=== PATIENT | male | born 1955 | race Caucasian/White ===

== ENCOUNTER 2018-01-18 09:28 | Emergency (ER) | payer BC ==
[2018-01-18 09:33] VITALS: RESP 18
[2018-01-18] MEDS ORDERED: IPRATROPIUM-ALBUTEROL 3 ML NEB INHALATION STA ×2 (09:47→10:30)
--- NOTE | 2018-01-18 10:27 | ED ---
General Adult HPI - General Chief complaint: Shortness of Breath Stated complaint: SOB, cough Time Seen by Provider: 01/18/18 09:40 Source: patient, RN notes reviewed Mode of arrival: ambulatory Limitations: no limitations - History of Present Illness Initial comments: Patient is a 62-year-old male presented to the emergency room today with a chief complaint of cough congestion over the last week. He does admit to positive sputum production it's been green in color. Patient does admit to being a daily smoker muscle half pack a day. He states that his son was sick with similar symptoms at home recently and thinks that he has safe. Patient denies any other complaints or symptoms. Patient denies any recent fever, chills , chest pain, back pain, abdominal pain, nausea or vomiting, numbness or tingling, headaches or visual changes, or any other complaints. - Related Data Home Medications Medication Instructions Recorded Confirmed Citalopram Hydrobromide [CeleXA] 20 mg PO DAILY 09/25/14 09/25/14 Dapagliflozin Propanediol [Farxiga] 5 mg PO DAILY 09/25/14 09/25/14 Hydrocodone/Acetaminophen [[place] 1 each PO Q8H PRN 09/25/14 09/25/14 10-325] Lisinopril [Zestril] 5 mg PO DAILY 09/25/14 09/25/14 Metoprolol Tartrate [Lopressor] 12.5 mg PO BID 09/25/14 09/25/14 Pregabalin [Lyrica] 75 mg PO BID 09/25/14 09/25/14 Simvastatin [Zocor] 20 mg PO HS 09/25/14 09/25/14 sitaGLIPtin [Januvia] 100 mg PO DAILY 09/25/14 09/25/14 Previous Rx's Medication Instructions Recorded Ondansetron [Zofran ODT] 4 mg PO Q8HR PRN #12 tab 09/25/14 diphenhydrAMINE [Benadryl] 25 mg PO TID PRN #12 capsule 09/25/14 Albuterol Inhaler [Ventolin Hfa 1 - 2 puff INHALATION Q4-6H PRN #1 01/18/18 Inhaler] inhaler Albuterol Nebulized [Ventolin 2.5 mg INHALATION Q4H PRN 10 Days 01/18/18 Nebulized] nebu Azithromycin [Zithromax] 500 mg PO DAILY 5 Days tab 01/18/18 predniSONE 50 mg PO DAILY #5 tab 01/18/18 Allergies Allergy/AdvReac Type Severity Reaction Status Date / Time ketamine Allergy Hallucinati Verified 01/18/18 09:33 ons Review of Systems ROS Statement: Those systems with pertinent positive or pertinent negative responses have been documented in the HPI. ROS Other: All systems not noted in ROS Statement are negative. Past Medical History Past Medical History: Diabetes Mellitus, Hyperlipidemia, Hypertension Additional Past Medical History / Comment(s): Pancreatitis; Peripheral Neuropathy History of Any Multi-Drug Resistant Organisms: None Reported Past Surgical History: Cholecystectomy, Hernia Repair, Orthopedic Surgery Additional Past Surgical History / Comment(s): Exploratory Laparatomy Past Psychological History: Anxiety Smoking Status: Current every day smoker Past Alcohol Use History: Rare Past Drug Use History: None Reported General Exam - General Exam Comments Initial Comments: General: The patient is awake and alert, in no distress, and does not appear acutely ill. Eye: Extra-ocular movements are intact. No nystagmus. There is normal conjunctiva bilaterally. No signs of icterus. Ears, nose, mouth and throat: There are moist mucous membranes and no oral lesions. Neck: The neck is supple, there is no tenderness or JVD. Cardiovascular: There is a regular rate and rhythm. No murmur, rub or gallop is appreciated. Respiratory: Patient does have a story wheeze bilaterally with scattered rhonchi. Respirations are non-labored, breath sounds are equal. No stridor, rales. Musculoskeletal: Normal ROM, no tenderness. Sensation intact. Neurological: A&O x 3. CN II-XII intact, There are no obvious motor or sensory deficits. Coordination appears grossly intact. Speech is normal. Skin: Skin is warm and dry and no rashes or lesions are noted. Psychiatric: Cooperative, appropriate mood & affect, normal judgment. Limitations: no limitations Course Vital Signs 01/18/18 01/18/18 01/18/18 09:28 09:59 10:07 Temperature 98 F Pulse Rate 96 88 92 Respiratory 18 Rate Blood Pressure 153/87 O2 Sat by Pulse 96 Oximetry 01/18/18 01/18/18 10:50 10:58 Temperature Pulse Rate 87 90 Respiratory Rate Blood Pressure O2 Sat by Pulse Oximetry Medical Decision Making - Medical Decision Making Patient's chest x-ray reviewed and shows evidence for COPD. No sign of pneumonia. Patient is resting comfortably. No sign of distress. Pulse ox 96% here in the emergency room at triage per patient given 2 breathing treatments doesn't improvement of symptoms here. Patient will be treated for bronchitis infection and started on antibiotic, steroid. Patient is a diabetic taking pills for this. Advised that this will effect his blood sugar. He is advised follow-up family doctor next 2 days. Given a prescription for repeat treatment nebulizer. He is advised to return if symptoms increase or worsen. Disposition Clinical Impression: Acute bronchitis Disposition: HOME SELF-CARE Condition: Good Instructions: Acute Bronchitis (ED) Additional Instructions: Please use medication as discussed. Please follow-up with family doctor in the next 2 days of symptoms have not improved. Please return to emergency room if the symptoms increase or worsen or for any other concerns. Prescriptions: Albuterol Inhaler [Ventolin Hfa Inhaler] 1 - 2 puff INHALATION Q4-6H PRN #1 inhaler PRN Reason: Cough Albuterol Nebulized [Ventolin Nebulized] 2.5 mg INHALATION Q4H PRN 10 Days nebu PRN Reason: Cough Azithromycin [Zithromax] 500 mg PO DAILY 5 Days tab predniSONE 50 mg PO DAILY #5 tab Is patient prescribed a controlled substance at d/c from ED?: No Referrals: Steve Flores MD [Primary Care Provider] - 1-2 days Time of Disposition: 11:35
--- NOTE | 2018-01-18 10:28 | XR ---
EXAMINATION TYPE: XR chest 2V DATE OF EXAM: 01/18/2018 HISTORY: cough. REFERENCE: Previous study dated 11/19/2014. FINDINGS: The lungs are overinflated but clear. Pleural space are clear. The heart is not enlarged. IMPRESSION: COPD.
[2018-01-18 11:44] VITALS: BP 125/72; PULSE 85; TEMP 98.3
== END 2018-01-18 11:44 | disposition home or self-care (01) ==
LOC: EC 09:28
DX: J20.9 Acute bronchitis, unspecified (principal); I10 Essential (primary) hypertension; E78.5 Hyperlipidemia, unspecified; E11.40 Type 2 diabetes mellitus with diabetic neuropathy, unspecified; F17.210 Nicotine dependence, cigarettes, uncomplicated
CPT/HCPCS: 71046; 94640; 99285

== ENCOUNTER 2018-01-19 21:11 | Emergency (ER) | payer BC ==
[2018-01-19 21:25] VITALS: TEMP 98.5
[2018-01-19] MEDS ORDERED: IPRATROPIUM-ALBUTEROL 3 ML NEB INHALATION STA (22:16)
[2018-01-19] MEDS ORDERED: BENZONATATE 100 MG CAP PO STA (22:16)
--- NOTE | 2018-01-19 22:22 | ED ---
URI HPI - General Source: patient Mode of arrival: ambulatory Limitations: no limitations <Yoanna Spivey - Last Filed: 01/20/18 04:04> <Kinjal Christine - Last Filed: 01/20/18 04:41> - General Chief Complaint: Upper Respiratory Infection Stated Complaint: cough-revisit Time Seen by Provider: 01/19/18 21:56 - History of Present Illness Initial Comments: 62-year-old male patient presents to the emergency department today with chief complaint of persistent cough. Patient states he was seen and evaluated here yesterday and diagnosed with acute bronchitis. Patient states that he was provided with albuterol nebulizer treatments, antibiotics, and steroids however nothing for the cough. Patient states that the cough is constant and he is unable to rest or sleep at night related to this. Patient is requesting a cough medication. Patient did admit that he has been reluctant to take the steroids because he does have diabetes and it does affect her sugar. Patient denies any fevers or chills. He denies any chest pain. States that when he has a coughing episode he does become short of breath. Patient denies any recent rash, abdominal pain, nausea, vomiting, diarrhea, constipation, back pain , numbness, tingling, dizziness, weakness, hematuria, dysuria, urinary urgency, urinary frequency, headache, visual changes, or any other complaints. (Yoanna Spivey) - Related Data Home Medications Medication Instructions Recorded Confirmed Citalopram Hydrobromide [CeleXA] 20 mg PO HS 09/25/14 01/19/18 sitaGLIPtin [Januvia] 100 mg PO DAILY 09/25/14 01/19/18 Albuterol Inhaler [Ventolin Hfa 1 - 2 puff INHALATION RT-Q4H PRN 01/19/18 Inhaler] Albuterol Nebulized [Ventolin 2.5 mg INHALATION RT-Q4H PRN 01/19/18 01/19/18 Nebulized] Atorvastatin [Lipitor] 20 mg PO HS 01/19/18 01/19/18 Dapagliflozin Propanediol [Farxiga] 10 mg PO DAILY 01/19/18 01/19/18 Gabapentin 800 mg PO TID 01/19/18 01/19/18 Lisinopril [Zestril] 10 mg PO DAILY 01/19/18 01/19/18 Methadone [Dolophine] 10 mg PO Q6H 01/19/18 01/19/18 Metoprolol Tartrate [Lopressor] 25 mg PO BID 01/19/18 01/19/18 clonazePAM [KlonoPIN] 0.5 mg PO BID PRN 01/19/18 01/19/18 Previous Rx's Medication Instructions Recorded Azithromycin [Zithromax] 500 mg PO DAILY 5 Days tab 01/18/18 Albuterol Sulfate [Proair Hfa] 1 - 2 puff INHALATION Q6HR PRN #1 01/19/18 inhaler Benzonatate [Tessalon Perles] 100 mg PO TID #15 cap 01/19/18 Promethaz-Cod 6.25-10 mg/5 ml 5 ml PO Q4HR PRN 3 Days #90 ml 01/19/18 [Phenergan with Codeine] Allergies Allergy/AdvReac Type Severity Reaction Status Date / Time ketamine AdvReac Hallucinati Verified 01/19/18 21:36 ons Review of Systems ROS Other: All systems not noted in ROS Statement are negative. <Yoanna Spivey M - Last Filed: 01/20/18 04:04> ROS Other: All systems not noted in ROS Statement are negative. <Kinjal Christine - Last Filed: 01/20/18 04:41> ROS Statement: Those systems with pertinent positive or pertinent negative responses have been documented in the HPI. Past Medical History Past Medical History: Diabetes Mellitus, Hyperlipidemia, Hypertension Additional Past Medical History / Comment(s): Pancreatitis; Peripheral Neuropathy History of Any Multi-Drug Resistant Organisms: None Reported Past Surgical History: Cholecystectomy, Hernia Repair, Orthopedic Surgery Additional Past Surgical History / Comment(s): Exploratory Laparatomy Past Psychological History: Anxiety Smoking Status: Current every day smoker Past Alcohol Use History: Rare Past Drug Use History: None Reported <Yoanna Spivey - Last Filed: 01/20/18 04:04> General Exam Limitations: no limitations General appearance: alert, in no apparent distress, other (This is a well- developed, well-nourished adult male patient in no acute distress. Vital signs upon presentation are temperature 98.5F, pulse 106, respirations 26, blood pressure 142/79, pulse ox 93% on room air.) Eye exam: Present: normal appearance, PERRL, EOMI. Absent: scleral icterus, conjunctival injection, periorbital swelling ENT exam: Present: normal exam, normal oropharynx, mucous membranes moist Respiratory exam: Present: wheezes (Tight expiratory wheezing throughout all posterior lung gilliam.), other (Persistent cough noted throughout exam). Absent : normal lung sounds bilaterally, respiratory distress, rales, rhonchi, stridor Cardiovascular Exam: Present: normal rhythm, tachycardia, normal heart sounds. Absent: systolic murmur, diastolic murmur, rubs, gallop, clicks GI/Abdominal exam: Present: soft, normal bowel sounds. Absent: distended, tenderness, guarding, rebound, rigid Neurological exam: Present: alert, oriented X3, CN II-XII intact Psychiatric exam: Present: normal affect, normal mood Skin exam: Present: warm, dry, intact, normal color. Absent: rash <Yoanna Spivey M - Last Filed: 01/20/18 04:04> Vital Signs 01/19/18 01/19/18 01/19/18 21:22 22:23 22:37 Temperature 98.5 F Pulse Rate 106 H 109 H 99 Respiratory 26 H 18 18 Rate Blood Pressure 142/79 O2 Sat by Pulse 93 L Oximetry 01/19/18 22:44 Temperature Pulse Rate 104 H Respiratory 18 Rate Blood Pressure 144/74 O2 Sat by Pulse 91 L Oximetry Medical Decision Making <Yoanna Spivey M - Last Filed: 01/20/18 04:04> <Kinjal Christine - Last Filed: 01/20/18 04:41> - Medical Decision Making 62-year-old male patient presents to the emergency department today requesting cough medication. Patient was diagnosed with acute bronchitis yesterday and given prescriptions for prednisone, azithromycin, and albuterol nebulizer treatments. Patient states he has to have prior authorization for the nebulizer treatments before they will fill his prescription. States he has been taking the antibiotics but has not been taking the steroid. Patient physical exam did reveal tight expiratory wheezing to all posterior lung gilliam. Patient did have low oxygen saturations between 91 and 93% on the department. Patient was given DuoNeb breathing treatment here in the department. He'll be given a prescription for Tessalon Perles and cough medication to use at bedtime. He is instructed to follow-up with his primary care physician for recheck in 1-2 days. He was urged to take the steroid inhaler manage the blood sugar accordingly. He was given a prescription for a Pro Air inhaler until he can fill the nebulizer treatment. Return parameters are discussed in detail. He does feel comfortable being discharged home at this time. He verbalizes understanding and agrees with this plan. (Yoanna Spivey) I was available for consultation in the emergency department. The history and physical exam were done by the midlevel provider. I was consulted for this patient's care. I reviewed the case with the midlevel provider and based on their presentation of the patient, I agree with the assessment, medical decision making and plan of care as documented. (Kinjal Christine) Disposition Is patient prescribed a controlled substance at d/c from ED?: No Time of Disposition: 22:22 <Yoanna Spivey - Last Filed: 01/20/18 04:04> <Kinjal Christine - Last Filed: 01/20/18 04:41> Clinical Impression: Acute bronchitis Disposition: HOME SELF-CARE Condition: Good Instructions: Acute Bronchitis (ED) Additional Instructions: Increase fluids. Take medications as directed. Follow-up with your primary care physician for recheck in 1-2 days. Turn here immediately for any new, worsening, or concerning symptoms. Prescriptions: Albuterol Sulfate [Proair Hfa] 1 - 2 puff INHALATION Q6HR PRN #1 inhaler PRN Reason: Wheezing Benzonatate [Tessalon Perles] 100 mg PO TID #15 cap Promethaz-Cod 6.25-10 mg/5 ml [Phenergan with Codeine] 5 ml PO Q4HR PRN 3 Days # 90 ml PRN Reason: Cough Referrals: Steve Flores MD [Primary Care Provider] - 1-2 days
[2018-01-19 22:27] VITALS: RESP 18
[2018-01-19 22:46] VITALS: BP 144/74; PULSE 104
== END 2018-01-19 22:46 | disposition home or self-care (01) ==
LOC: EC 21:11
DX: J20.9 Acute bronchitis, unspecified (principal); E11.9 Type 2 diabetes mellitus without complications; E78.5 Hyperlipidemia, unspecified; I10 Essential (primary) hypertension; G62.9 Polyneuropathy, unspecified; F41.9 Anxiety disorder, unspecified; F17.200 Nicotine dependence, unspecified, uncomplicated; Z90.49 Acquired absence of other specified parts of digestive tract; Z98.890 Other specified postprocedural states; Z79.84 Long term (current) use of oral hypoglycemic drugs; Z79.899 Other long term (current) drug therapy; Z88.4 Allergy status to anesthetic agent
CPT/HCPCS: 94640; 99283

== ENCOUNTER 2020-12-08 10:12 | Emergency (ER) | payer BC ==
[2020-12-08] MEDS ORDERED: ONDANSETRON 4 MG/2 ML VIAL IVP STA (10:49)
[2020-12-08] MEDS ORDERED: HYDROmorphone 0.5 MG/0.5 ML SYRINGE IVP STA (10:49)
[2020-12-08] MEDS ORDERED: SODIUM CHLORIDE 0.9% 1,000 ML IV STA (10:49)
[2020-12-08 11:09] LABS: Basophils % (A) 0 %; Eosinophils % (A) 1 %; HCT 47.5 % (39.0-53.0); HGB 15.2 gm/dL (13.0-17.5); Lymphocytes % (A) 14 %; MCH 30.5 pg (25.0-35.0); MCHC 32.1 g/dL (31.0-37.0); MCV 95.1 fL (80.0-100.0); Mean Platelet Volume 8.4; Monocytes # (A) 0.3 k/uL (0-1.0); Monocytes % (A) 3 %; Neutrophils # (A) 5.9 k/uL (1.3-7.7); Neutrophils % (A) 81 %; Platelet Count 189 k/uL (150-450); RBC 4.99 m/uL (4.30-5.90); RDW 13.8 % (11.5-15.5); WBC 7.3 k/uL (3.8-10.6)
--- NOTE | 2020-12-08 11:18 | ED ---
Abdominal Pain HPI - General Chief Complaint: Abdominal Pain Stated Complaint: abd pain Time Seen by Provider: 12/08/20 10:35 Source: patient, RN notes reviewed Mode of arrival: ambulatory Limitations: no limitations - History of Present Illness Initial Comments: This a 65-year-old male presents emergency Department with chief complaint of abdominal pain. Patient states started morning. Did has nausea vomiting no diarrhea no constipation or dysuria no hematuria. Patient states that he has had a prior cholecystectomy and hernia repair. Patient states that no prior bowel obstructions denies fevers chills no chest pain or shortness breath no flank pain - Related Data Home Medications Medication Instructions Recorded Confirmed sitaGLIPtin [Januvia] 100 mg PO DAILY 09/25/14 12/08/20 Atorvastatin [Lipitor] 20 mg PO HS 01/19/18 12/08/20 Dapagliflozin Propanediol [Farxiga] 10 mg PO DAILY 01/19/18 12/08/20 Albuterol Sulfate [Proair Hfa] 1 - 2 puff INHALATION RT-Q6H PRN 12/08/20 12/08/20 Alogliptin Benzoate [Alogliptin] 25 mg PO DAILY 12/08/20 12/08/20 Buprenorphine HCl/Naloxone HCl 1 film SL TID 12/08/20 12/08/20 [Suboxone 8 mg-2 mg Sl Film] DULoxetine HCL [Cymbalta] 60 mg PO DAILY 12/08/20 12/08/20 Gabapentin 1,200 mg PO TID 12/08/20 12/08/20 Metoprolol Tartrate [Lopressor] 50 mg PO BID 12/08/20 12/08/20 glipiZIDE [Glucotrol] 10 mg PO BID 12/08/20 12/08/20 lisinopriL 40 mg PO DAILY 12/08/20 12/08/20 Previous Rx's Medication Instructions Recorded Ketorolac [Toradol] 10 mg PO Q8HR #15 tab 12/08/20 Ondansetron Odt [Zofran Odt] 4 mg PO Q8HR PRN #10 tab 12/08/20 Tamsulosin [Flomax] 0.4 mg PO DAILY #7 cap 12/08/20 Allergies Allergy/AdvReac Type Severity Reaction Status Date / Time ketamine AdvReac Hallucinati Verified 12/08/20 11:23 ons Review of Systems ROS Statement: Those systems with pertinent positive or pertinent negative responses have been documented in the HPI. ROS Other: All systems not noted in ROS Statement are negative. Past Medical History Past Medical History: Diabetes Mellitus, Hyperlipidemia, Hypertension Additional Past Medical History / Comment(s): Pancreatitis; Peripheral Neuropathy History of Any Multi-Drug Resistant Organisms: None Reported Past Surgical History: Cholecystectomy, Hernia Repair, Orthopedic Surgery Additional Past Surgical History / Comment(s): Exploratory Laparatomy Past Psychological History: Anxiety Smoking Status: Current every day smoker Past Alcohol Use History: Daily Past Drug Use History: Marijuana General Exam Limitations: no limitations General appearance: alert, in no apparent distress Head exam: Present: atraumatic, normocephalic, normal inspection Eye exam: Present: normal appearance, PERRL, EOMI. Absent: scleral icterus, conjunctival injection, periorbital swelling Respiratory exam: Present: normal lung sounds bilaterally. Absent: respiratory distress, wheezes, rales, rhonchi, stridor Cardiovascular Exam: Present: regular rate, normal rhythm, normal heart sounds. Absent: systolic murmur, diastolic murmur, rubs, gallop, clicks GI/Abdominal exam: Present: soft, distended, tenderness, normal bowel sounds. Absent: guarding, rebound, rigid Course Vital Signs 12/08/20 12/08/20 10:26 11:28 Temperature 98.6 F Pulse Rate 64 68 Respiratory 18 16 Rate Blood Pressure 226/94 189/96 O2 Sat by Pulse 98 96 Oximetry Medical Decision Making - Medical Decision Making 65-year-old presented to [facility] from for abdominal pain rates the flank. Patient has evidence of ureteral calculi. Patient's pain is improved will be discharged in stable condition patient is known diabetic found to be hyperglycemic. - Lab Data Result diagrams: 12/08/20 11:03 12/08/20 11:03 Lab Results 12/08/20 12/08/20 12/08/20 Range/Units 11:03 11:03 11:03 WBC 7.3 (3.8-10.6) k/uL RBC 4.99 (4.30-5.90) m/uL Hgb 15.2 (13.0-17.5) gm/dL Hct 47.5 (39.0-53.0) % MCV 95.1 (80.0-100.0) fL MCH 30.5 (25.0-35.0) pg MCHC 32.1 (31.0-37.0) g/dL RDW 13.8 (11.5-15.5) % Plt Count 189 (150-450) k/uL MPV 8.4 Neutrophils % 81 % Lymphocytes % 14 % Monocytes % 3 % Eosinophils % 1 % Basophils % 0 % Neutrophils # 5.9 (1.3-7.7) k/uL Lymphocytes # 1.0 (1.0-4.8) k/uL Monocytes # 0.3 (0-1.0) k/uL Eosinophils # 0.0 (0-0.7) k/uL Basophils # 0.0 (0-0.2) k/uL PT 9.9 (9.0-12.0) sec INR 0.9 (<1.2) APTT 21.0 L (22.0-30.0) sec Sodium 138 (137-145) mmol/L Potassium 3.7 (3.5-5.1) mmol/L Chloride 105 (98-107) mmol/L Carbon Dioxide 20 L (22-30) mmol/L Anion Gap 13 mmol/L BUN 16 (9-20) mg/dL Creatinine 0.64 L (0.66-1.25) mg/dL Est GFR (CKD-EPI)AfAm >90 (>60 ml/min/1.73 sqM) Est GFR (CKD-EPI)NonAf >90 (>60 ml/min/1.73 sqM) Glucose 359 H (74-99) mg/dL Plasma Lactic Acid Zac (0.7-2.0) mmol/L Calcium 9.6 (8.4-10.2) mg/dL Total Bilirubin 0.5 (0.2-1.3) mg/dL AST 29 (17-59) U/L ALT 32 (4-49) U/L Alkaline Phosphatase 172 H (38-126) U/L Total Protein 6.2 L (6.3-8.2) g/dL Albumin 4.2 (3.5-5.0) g/dL Amylase 38 (30-110) U/L Lipase 50 (23-300) U/L Urine Color Urine Appearance (Clear) Urine pH (5.0-8.0) Ur Specific [place] (1.001-1.035) Urine Protein (Negative) Urine Glucose (UA) (Negative) Urine Ketones (Negative) Urine Blood (Negative) Urine Nitrite (Negative) Urine Bilirubin (Negative) Urine Urobilinogen (<2.0) mg/dL Ur Leukocyte Esterase (Negative) Urine RBC (0-5) /hpf Urine WBC (0-5) /hpf Ur Squamous Epith Cells (0-4) /hpf Urine Mucus (None) /hpf 12/08/20 12/08/20 Range/Units 11:03 12:59 WBC (3.8-10.6) k/uL RBC (4.30-5.90) m/uL Hgb (13.0-17.5) gm/dL Hct (39.0-53.0) % MCV (80.0-100.0) fL MCH (25.0-35.0) pg MCHC (31.0-37.0) g/dL RDW (11.5-15.5) % Plt Count (150-450) k/uL MPV Neutrophils % % Lymphocytes % % Monocytes % % Eosinophils % % Basophils % % Neutrophils # (1.3-7.7) k/uL Lymphocytes # (1.0-4.8) k/uL Monocytes # (0-1.0) k/uL Eosinophils # (0-0.7) k/uL Basophils # (0-0.2) k/uL PT (9.0-12.0) sec INR (<1.2) APTT (22.0-30.0) sec Sodium (137-145) mmol/L Potassium (3.5-5.1) mmol/L Chloride (98-107) mmol/L Carbon Dioxide (22-30) mmol/L Anion Gap mmol/L BUN (9-20) mg/dL Creatinine (0.66-1.25) mg/dL Est GFR (CKD-EPI)AfAm (>60 ml/min/1.73 sqM) Est GFR (CKD-EPI)NonAf (>60 ml/min/1.73 sqM) Glucose (74-99) mg/dL Plasma Lactic Acid Zac 1.0 (0.7-2.0) mmol/L Calcium (8.4-10.2) mg/dL Total Bilirubin (0.2-1.3) mg/dL AST (17-59) U/L ALT (4-49) U/L Alkaline Phosphatase (38-126) U/L Total Protein (6.3-8.2) g/dL Albumin (3.5-5.0) g/dL Amylase (30-110) U/L Lipase (23-300) U/L Urine Color Light Yellow Urine Appearance Clear (Clear) Urine pH 5.5 (5.0-8.0) Ur Specific [place] 1.030 (1.001-1.035) Urine Protein 1+ H (Negative) Urine Glucose (UA) 4+ H (Negative) Urine Ketones 2+ H (Negative) Urine Blood Negative (Negative) Urine Nitrite Negative (Negative) Urine Bilirubin Negative (Negative) Urine Urobilinogen <2.0 (<2.0) mg/dL Ur Leukocyte Esterase Negative (Negative) Urine RBC 1 (0-5) /hpf Urine WBC <1 (0-5) /hpf Ur Squamous Epith Cells <1 (0-4) /hpf Urine Mucus Rare H (None) /hpf Disposition Clinical Impression: Hyperglycemia, Left ureteral calculus Disposition: HOME SELF-CARE Condition: Stable Instructions (If sedation given, give patient instructions): Kidney Stones (ED) Additional Instructions: Please return to the Emergency Department if symptoms worsen or any other concerns. Prescriptions: Tamsulosin [Flomax] 0.4 mg PO DAILY #7 cap Ketorolac [Toradol] 10 mg PO Q8HR #15 tab Ondansetron Odt [Zofran Odt] 4 mg PO Q8HR PRN #10 tab PRN Reason: Nausea Is patient prescribed a controlled substance at d/c from ED?: No Referrals: González Rojas MD [Primary Care Provider] - 1-2 days Philip Yin MD [STAFF PHYSICIAN] - 1-2 days Time of Disposition: 13:52
[2020-12-08 11:23] LABS: ALT 32 U/L (4-49); AST 29 U/L (17-59); African American GFR (CKD) >90 (>60 ml/min/1.73 sqM); Albumin 4.2 g/dL (3.5-5.0); Alkaline Phosphatase 172 U/L (38-126); Amylase 38 U/L (30-110); Anion Gap 13 mmol/L; Blood Urea Nitrogen 16 mg/dL (9-20); Calcium 9.6 mg/dL (8.4-10.2); Carbon Dioxide 20 mmol/L (22-30); Chloride 105 mmol/L (98-107); Glucose 359 mg/dL (74-99); Lipase 50 U/L (23-300); Non-African American GFR(CKD) >90 (>60 ml/min/1.73 sqM); Potassium 3.7 mmol/L (3.5-5.1); Sodium 138 mmol/L (137-145); Total Bilirubin 0.5 mg/dL (0.2-1.3); Total Protein 6.2 g/dL (6.3-8.2)
[2020-12-08 11:29] VITALS: RESP 16
[2020-12-08 12:04] LABS: INR 0.9 (<1.2); Prothrombin Time 9.9 sec (9.0-12.0)
--- NOTE | 2020-12-08 12:34 | CT ---
EXAMINATION TYPE: CT abdomen pelvis w con DATE OF EXAM: 12/08/2020 COMPARISON: None INDICATION: Upper abd pain DLP: 839 mGycm, Automated exposure control for dose reduction was used. CONTRAST: 100 mL of Isovue 300. Study performed without Oral Contrast TECHNIQUE: Axial images were obtained from above the diaphragm to the pubic rami in the axial plane a t 5 mm thick sections. Reconstructed images are reviewed on the computer in the coronal plane. FINDINGS: Limited CT sections are obtained the lung bases. The lung bases are clear. CT ABDOMEN: Liver: Some mild biliary dilatation is present through the abdomen. Spleen: Splenule adjacent to the medial spleen. Small cyst within the spleen Pancreas: Extensive calcifications are throughout the pancreas compatible with chronic pancreatitis. Adrenal glands: The adrenal glands are normal. Gallbladder: Surgically absent. Kidneys: No masses are evident. There is mild left hydronephrosis. Hydroureter is present on the left . This extends to a 0.4 cm calcification within the left hemipelvis which could be a distal ureteral stone. In the coronal plane this appears to lie lateral to the ureter however. There is low density i ll-defined mass collection adjacent to the proximal ureter. This could be decompression of a hydronep hrosis and hydroureter. No cysts are present. Delayed images were obtained through the kidneys. Ther e is delayed excretion on the left compared to the right. Nonobstructing renal stones are identified on the bilateral kidneys. Aorta: Vascular calcification is within the aorta. Inferior vena cava: Normal. CT PELVIS: Loops of bowel within the abdomen and pelvis are normal. A few scattered diverticula are present B owel loops has some limitation without oral contrast. Appendix: Normal as visualized. Urinary bladder: Normal. Genitourinary structures: Prostate appears unremarkable Osseous structures: No suspicious lytic or sclerotic lesions. IMPRESSIONS: 1. Delayed excretion from the left kidney compared to the right. There is mild hydronephrosis hydrou reter extending to the urinary bladder. A potential 0.4 cm distal ureteral stone may be present. This could be a phlebolith. No additional distal suspected obstruction is identified. 2. Mild diverticulosis without diverticulitis. 3. Biliary dilatation of uncertain etiology.
[2020-12-08] MEDS ORDERED: KETOROLAC 15 MG/ML 1 ML VIAL IVP STA (13:05)
[2020-12-08 13:10] LABS: Appearance,Urine Clear (Clear); Bilirubin,Urine Negative (Negative); Blood,Urine Negative (Negative); Color,Urine Light Yellow; Glucose,Urine (UA) 4+ (Negative); Leukocyte Esterase,Urine Negative (Negative); Mucus,Urine Rare /hpf; Nitrite,Urine Negative (Negative); PH, Urine 5.5 (5.0-8.0); Protein,Urine 1+ (Negative); RBC,Urine 1 /hpf (0-5); Squamous Epithelial Cell,Urine <1 /hpf (0-4); Urobilinogen,Urine <2.0 mg/dL (<2.0); WBC,Urine <1 /hpf (0-5)
[2020-12-08 13:25] LABS: Ketones,Urine 2+ (Negative)
[2020-12-08] MEDS ORDERED: INSULIN REGULAR 100 UNIT/ML VIAL (IV) IV ONE (13:51)
[2020-12-08 14:38] VITALS: BP 132/67; PULSE 78; TEMP 98
== END 2020-12-08 14:37 | disposition home or self-care (01) ==
LOC: EC 10:12
DX: N20.1 Calculus of ureter (principal); E11.65 Type 2 diabetes mellitus with hyperglycemia; E11.42 Type 2 diabetes mellitus with diabetic polyneuropathy; I10 Essential (primary) hypertension; E78.5 Hyperlipidemia, unspecified; F41.9 Anxiety disorder, unspecified; F17.200 Nicotine dependence, unspecified, uncomplicated; F12.90 Cannabis use, unspecified, uncomplicated; Z79.84 Long term (current) use of oral hypoglycemic drugs; Z79.1 Long term (current) use of non-steroidal anti-inflammatories (NSAID); Z79.899 Other long term (current) drug therapy; Z90.49 Acquired absence of other specified parts of digestive tract
CPT/HCPCS: 36415; 80053; 82150; 83605; 83690; 85025; 85610; 85730; 81001; 74177; 96374; 96375 ×3; 96361 ×2; 99284; J2405; J1885; J1170; Q9967